=== PATIENT | female | born 1970 | race African-American/Black ===

== ENCOUNTER 2016-08-28 12:44 | Emergency (ER) | payer OTHER ==
[~2016-08-28] VITALS: Ht 165.1 cm; Wt 68.2 kg
[2016-08-28 14:00] VITALS: BP 119/74
== END 2016-08-28 14:00 | disposition home or self-care (01) ==
LOC: EMS 12:45
DX: B35.3 Tinea pedis (principal); L29.9 Pruritus, unspecified; F17.210 Nicotine dependence, cigarettes, uncomplicated
CPT/HCPCS: 99283

== ENCOUNTER 2022-04-22 09:21 | Emergency (ER) | payer OTHER ==
[~2022-04-22] VITALS: Ht 165.1 cm; Wt 62.7 kg
[2022-04-22 12:05] VITALS: BP 102/66
== END 2022-04-22 12:27 | disposition home or self-care (01) ==
LOC: EMS 09:44
DX: S56.911A Strain of unspecified muscles, fascia and tendons at forearm level, right arm, initial encounter (principal); F17.210 Nicotine dependence, cigarettes, uncomplicated; X50.0XXA Overexertion from strenuous movement or load, initial encounter; Y93.89 Activity, other specified; Y92.89 Other specified places as the place of occurrence of the external cause; Y99.8 Other external cause status
CPT/HCPCS: 99281; Z7502